=== PATIENT | male | born 1960 | race Hispanic/Latino ===

== ENCOUNTER 2024-10-20 13:56 | Emergency (ER) | payer MEDICARE ==
[~2024-10-20] VITALS: Ht 167.6 cm; Wt 91.2 kg
[2024-10-20 14:01] VITALS: TEMP 98.4
[2024-10-20 14:48] LABS: BASOPHILS % 0.3 % (0.0-1.0); EOSINOPHILS # (AUTO) 0.1 (0.0-0.4); EOSINOPHILS % 1.3 % (0.0-6.0); HEMATOCRIT 40.7 % (38.2-49.6); HEMOGLOBIN 13.9 g/dL (14.0-18.0); LYMPHOCYTES # (AUTO) 3.2 (1.0-3.2); LYMPHOCYTES % 33.1 % (18.0-39.1); MEAN CORPUSCULAR HGB CONC 34.2 g/dL (31-35); MEAN CORPUSCULAR VOLUME 81.9 fL (81-99); MONOCYTES # (AUTO) 0.7 (0.2-0.8); MONOCYTES % 7.1 % (4.4-11.3); NEUTROPHILS # (AUTO) 5.7 (2.1-6.9); NEUTROPHILS % 57.9 % (38.7-80.0); PLATELET COUNT 309 x10e3/uL (140-360); RED BLOOD COUNT 4.97 x10e6/uL (4.3-5.7); RED CELL DISTRIBUTION WIDTH 14.5 % (11.7-14.4)
[2024-10-20 15:12] LABS: ALBUMIN 3.5 g/dL (3.5-5.0); ALBUMIN/GLOBULIN RATIO 0.8 (0.8-2.0); ANION GAP 15.4 mmol/L (8-16); BILIRUBIN,TOTAL 0.6 mg/dL (0.2-1.2); CALCIUM 9.2 mg/dL (8.4-10.2); CREATININE, SERUM 0.83 mg/dL (0.72-1.25); POTASSIUM 4.4 mmol/L (3.5-5.1); TOTAL PROTEIN 7.7 g/dL (6.5-8.1)
[2024-10-20] MEDS ORDERED: LIDOCAINE 1% W/EPINEPHRINE 20 ML VIAL INJ ONE (15:45)
[2024-10-20] MEDS: Morphine 4mg INJECTION 4 MG/ML INJ IV ONE (15:57)
[2024-10-20] MEDS ORDERED: IOPAMIDOL 370 MG/ML 100 ML INFUS..BTL INJ ONE (16:05)
[2024-10-20] MEDS: LIDOCAINE 1% 5ML-MPF INJ ONE (16:16)
[2024-10-20] MEDS ORDERED: LIDOCAINE HCL 1% LOCAL INJ 20 ML VIAL ONE (16:54)
[2024-10-20] MEDS: LIDOCAINE HCL 1% LOCAL INJ 20 ML VIAL INJ ONE (17:01)
[2024-10-20] MEDS ORDERED: BACTRIM DS TAB1 EACH PO (17:34)
[2024-10-20] MEDS ORDERED: NAPROSYN500 MG PO (17:34)
[2024-10-20] MEDS ORDERED: HYDROCODON-ACE1 EA12 PO (17:34)
[2024-10-20 18:00] VITALS: PULSE 78; RESP 27; O2SAT 97
[2024-10-20] MEDS: TRIMETHOPRIM/SULFAMETHOXAZOLE 160-800 MG TAB PO ONE (18:18)
== END 2024-10-20 18:35 | disposition home or self-care (01) ==
LOC: ER 14:21
DX: R06.02 Shortness of breath (principal); L02.31 Cutaneous abscess of buttock
CPT/HCPCS: 10060; 36415; 71045; 71260; 80053; 83880; 85025; 85379; 93005; 99284; J2003; J2270; Q9967